=== PATIENT | female | born 1955 | race Caucasian/White ===

== ENCOUNTER → 2017-10-21 | Outpatient (CLI) | payer BC | LOC: LAB.O 12:07 | PROVIDERS: ATTEND Nurse Practitioner Family | DX: I10 Essential (primary) hypertension (principal); Z01.818 Encounter for other preprocedural examination; Z01.812 Encounter for preprocedural laboratory examination ==

== ENCOUNTER → 2018-02-13 | Outpatient (CLI) | payer BC ==
--- NOTE | 2018-02-13 11:30 | MRI ---
EXAM DESCRIPTION: Shoulder,Left: Magnetic Resonance Imaging. CLINICAL HISTORY: M12.812. Other specific arthropathies, not elsewhere classified, left shoulder. COMPARISON: MRI scan left shoulder on the same visit. TECHNIQUE: Multiplanar, high-field MRI, multiple sequences, without contrast, right shoulder.. Technically difficult study because patient internally rotated shoulder after the examination was began. FINDINGS: Minimal edema in the distal left infraspinatus tendon but no definite tear. Erosions and fluid in the insertion site at the posterior greater tuberosity. Intermediate signal in the supraspinatus tendon but no tear. Minimal fluid in the subacromion-subdeltoid bursa. Remaining tendons of the rotator cuff are intact. No muscle atrophy. Subcoracoid bursal effusion left shoulder effusion in the left AC joint and abutting the musculotendinous junction of the supraspinatus. Minimal edema in the subchondral facets of the joint. Type I curvature of the lateral, and but downsloping. Coracoid ligaments are intact. Left Glenohumeral joint effusion. Internal rotation of the humeral head. Minimal chondromalacia in the joint but no subchondral edema. Bicipital labral anchor is intact; long head biceps tendon within the bicipital groove. Intermediate signal in the cartilage of the posterior inferior glenoid labrum is intact.. IMPRESSION: 1. Tendinopathy distal left infraspinatus tendon but no tear. 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 No muscle atrophy. Erosions on the posterior left greater tuberosity at the insertion of the left infraspinatus tendon. Minimal subacromial-subdeltoid bursitis. 2. 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 Downsloping of the left lateral acromion abutting the left supraspinatus tendon musculotendinous junction. Subcoracoid bursitis. 3. Left glenohumeral joint effusion with no loose bodies. No significant chondromalacia or osteochondral lesions. Left labrum is intact. Limited evaluation due to patient rotation humeral head internally during the examination. Electronically signed by: Luis Roy MD 02/13/2018 11:29 AM CDT
--- NOTE | 2018-02-13 12:18 | MRI ---
Study: MRI of the Right Shoulder. Indication: M12.811 Technique: Multiplanar, multi sequence MRI of the right shoulder was obtained without intravenous contrast. Comparison: None. Findings: Mild to moderate AC joint osteoarthritis. Type I acromion with mild lateral downsloping. Supraspinatus and infraspinatus tendinosis noted with full-thickness, fullwidth supraspinatus tendon tearing as well as high-grade articular tearing anterior margin infraspinatus tendon. Torn tendon fibers medially retracted by up to 12 mm. Subscapularis and teres minor tendons intact. Subtle grade 1 fatty infiltration rotator cuff musculature. Long head biceps tendon intact. Circumferential labral truncation and degeneration, most pronounced posteriorly. No acute fracture. Minimal glenohumeral joint osteoarthritis with a small joint effusion. No acute fracture. Impression: Full-thickness, fullwidth supraspinatus tendon tear with high grade articular tearing anterior margin infraspinatus tendon. Subtle grade 1 fatty infiltration rotator cuff musculature. Circumferential labral truncation/degeneration. Minimal glenohumeral joint osteoarthritis. Mild to moderate AC joint osteoarthritis. Electronically signed by: Del Henderson MD 02/13/2018 12:17 PM CDT
== END ==
LOC: MRI 07:00
PROVIDERS: ATTEND Specialist
DX: M12.811 Other specific arthropathies, not elsewhere classified, right shoulder (principal); M12.812 Other specific arthropathies, not elsewhere classified, left shoulder; M75.101 Unspecified rotator cuff tear or rupture of right shoulder, not specified as traumatic